=== PATIENT | female | born 1935 | race Caucasian/White ===

== ENCOUNTER → 2016-06-05 | Outpatient (CLI) | payer OTHER ==
[~2016-06-05] MED LIST: CALCIUM 1,2001 EACH PO; CIPRO PO; CORDARONE200 M1 PO; CYMBALTA20 MG PO; FLONASE 0.05% N16 G1; IRON1 TA1 PO; LOPRESSOR PO; MULTI-DAY VITAM1 TAB PO; SINGULAIR PO; VICODIN; VITAMIN B12-FO1 EACH PO; VITAMIN D1000 UNIT PO; ZOCOR5 MG PO
--- NOTE | ~2016-06-05 | MY11 ---
[facility] A Service [facility] RADIOLOGY TEXT RESULTS PATIENT: HEDY WATTERS LOCATION: [facility] : 39 UNIT #: [id number] AGE: [address]: Ethel Nolasco APRN SEX: F ORDER DR: [id number] [address] [address] [id number] O MR#: [id number] Acc #: [id number] NAME: HEDY WATTERS : 1935 SEX: F STUDY DATE/TIME: 06/05/2016 10:13 UNIT: [facility] ROOM: STUDY DESCRIPTION: MY Mammogram Screening Dig Kulwinder Attending Physician: Ethel Nolasco A.P.R.N. Referring Physician: Ethel Nolasco A.P.R.N. Ordering Physician: Ethel Nolasco A.P.R.N. Primary Care Physician: Ethel Nolasco A.P.R.N. MEDICAL IMAGING REPORT This report is preliminary unless electronic signature is present. EXAM Digital screening mammogram, 06/05/2016. HISTORY 80-year-old woman; no risk elevation. Prior excisional left breast biopsy. Annual screening. COMPARISON Comparison mammograms date to 10/12/2005 with most recent screening comparison, 05/31/2015. FINDINGS Digital imaging of each breast was completed, utilizing screening protocol. Review includes FDA-approved CAD device. Breast parenchyma is predominantly fatty replaced and stable. There is no interval-occurring mass. There are no suspicious microcalcifications and no architectural deformity. IMPRESSION Negative stable mammogram. Annual screening recommended. Patients over the age of 40 are entered into a reminder system with target due date for the next mammogram. A result letter will also be sent to the patient. BIRADS: 1 Negative Dictated by... Frantz Acosta M.D. [facility] A Service of [facility] RADIOLOGY TEXT RESULTS PATIENT: HEDY WATTERS LOCATION: [facility] : 39 UNIT #: [id number] AGE: [address]: Ethel Nolasco APRN SEX: F ORDER DR: THIS IS AN ELECTRONICALLY VERIFIED REPORT Frantz Acosta M.D. at 06/05/2016 11:28 AM Merrick TD: 06/05/2016 11:16 JOB #: [id number] MEDICAL IMAGING REPORT Page 1 of 1
== END | disposition home or self-care (01) ==
LOC: SMAM 09:37
DX: Z12.31 Encounter for screening mammogram for malignant neoplasm of breast (principal); Z88.5 Allergy status to narcotic agent; Z88.8 Allergy status to other drugs, medicaments and biological substances; Z98.890 Other specified postprocedural states
CPT/HCPCS: G0202

== ENCOUNTER → 2016-06-09 | Outpatient (CLI) | payer OTHER ==
--- NOTE | ~2016-06-09 | CT2 ---
[facility] A Service of [facility] RADIOLOGY TEXT RESULTS PATIENT: HEDY WATTERS [facility] UNIT #: [id number] AGE: [address]: Domingo Colmenares MD SEX: F ORDER DR: [id number] [facility] [address] [place], [place] [address] [id number] O MR#: [id number] [facility] #: [id number] NAME: HEDY WATTERS. : 1935 SEX: F STUDY DATE/TIME: 06/09/2016 12:22 UNIT: [facility] ROOM: STUDY DESCRIPTION: CT Abd and Pelv W Cont Attending Physician: Domingo Colmenares M.D. Referring Physician: Domingo Colmenares M.D. Ordering Physician: Domingo Colmenares M.D. Primary Care Physician: Ethel Nolasco A.P.R.N. MEDICAL IMAGING REPORT This report is preliminary unless electronic signature is present EXAM Abdomen and pelvis CT with contrast. DATE OF EXAM 06/09/2016 HISTORY Colon cancer with colon resection in 2013. The patient is currently asymptomatic. Evaluate for abdomen and pelvis malignancy suspected. TECHNIQUE Axial images were obtained with intravenous and oral contrast. 100 mL of Isovue was used. NOTE: This CT exam was performed with one or more of the following radiation dose reduction techniques: automatic exposure control, adjustment of mA and/or kV according to patient size, and iterative reconstruction. COMPARISON Comparison scan from 06/18/2015. FINDINGS Emphysematous changes are seen at the lung bases. In the abdomen, no upper abdominal solid organ abnormalities are seen. There is no evidence of retroperitoneal adenopathy or ascites and no distended bowel loops are seen. Scans of the pelvis show no evidence of adenopathy, mass or fluid collection. Diverticulosis is seen without evidence of diverticulitis. Lumbar scoliosis is noted with associated degenerative disc disease. No vertebral body lesions are seen. IMPRESSION 1. No evidence of metastatic disease in the abdomen or pelvis. 2. Diverticulosis. [facility] A Service of [facility] RADIOLOGY TEXT RESULTS PATIENT: HEDY WATTERS LOCATION: [facility] : 39 UNIT #: [id number] AGE: [address]: Domingo Colmenares MD SEX: F ORDER DR: 3. Scoliosis with lumbar degenerative disc disease. Dictated by... Alonzo Corea M.D. THIS IS AN ELECTRONICALLY VERIFIED REPORT Alonzo Corea M.D. at 06/10/2016 8:03 AM CHRISTINE/augustus TD: 06/09/2016 19:12 JOB #: [id number] MEDICAL IMAGING REPORT Page 1 of 1 COPY
[2016-06-09 09:56] LABS: POC - CREATININE 1.24 mg/dL (0.44-1.03)
== END | disposition home or self-care (01) ==
LOC: CCAT 09:17
PROVIDERS: Internal Medicine Medical Oncology
DX: Z08 Encounter for follow-up examination after completed treatment for malignant neoplasm (principal); K57.90 Diverticulosis of intestine, part unspecified, without perforation or abscess without bleeding; M41.9 Scoliosis, unspecified; M51.36 Other intervertebral disc degeneration, lumbar region; Z85.038 Personal history of other malignant neoplasm of large intestine
CPT/HCPCS: 74177; 82565; 96360; 96361; Q9967